=== PATIENT | male | born 1965 | race Two or more races ===

== ENCOUNTER 2018-11-05 08:38 | Outpatient (CLI) | payer OTHER | END 2018-11-05 08:52 | disposition home or self-care (01) | LOC: TOM 08:38 | DX: Z12.11 Encounter for screening for malignant neoplasm of colon (principal) ==

== ENCOUNTER 2019-04-20 18:02 | Inpatient (IN) | payer OTHER ==
[~2019-04-20] VITALS: Ht 175.3 cm; Wt 99.8 kg
[2019-04-20] MEDS ORDERED: MULTI VITAMIN1 EACH (18:13)
[2019-04-28] MEDS ORDERED: OMEPRAZOLE20 MG PO (16:31)
[2019-04-28] MEDS ORDERED: BALANCE B-1001 EACH PO (16:31)
[2019-04-28] MEDS ORDERED: RANITIDINE HCL300 M1 PO (16:31)
[2019-04-28] MEDS ORDERED: CIPRO500 MG PO (16:31)
[2019-04-28] MEDS ORDERED: FLAGYL500MG PO (16:31)
[2019-04-28] MEDS ORDERED: VITAMIN B-1100 M1 PO (16:31)
== END 2019-04-28 17:15 | disposition home or self-care (01) | DRG 392 ==
LOC: ER 18:02 → MEDJ 23:35
PROVIDERS: ADMIT Internal Medicine Cardiovascular Disease
PROC: BW21ZZZ Computerized Tomography (CT Scan) of Abdomen and Pelvis (ICD-10-PCS; principal; 2019-04-20)
PROC: 02HV33Z Insertion of Infusion Device into Superior Vena Cava, Percutaneous Approach (ICD-10-PCS; 2019-04-22)
PROC: BW21Y0Z Computerized Tomography (CT Scan) of Abdomen and Pelvis using Other Contrast, Unenhanced and Enhanced (ICD-10-PCS; 2019-04-27)
DX: K57.30 Diverticulosis of large intestine without perforation or abscess without bleeding (principal); E80.6 Other disorders of bilirubin metabolism; K43.9 Ventral hernia without obstruction or gangrene; D72.828 Other elevated white blood cell count; K63.89 Other specified diseases of intestine; Q63.2 Ectopic kidney; I87.2 Venous insufficiency (chronic) (peripheral); R19.03 Right lower quadrant abdominal swelling, mass and lump

== ENCOUNTER 2025-01-29 10:02 | Outpatient (CLI) | payer OTHER ==
[~2025-01-29 10:02] MED LIST: BALANCE B-1001 EACH PO; CIPRO500 MG PO; FLAGYL500MG PO; MULTI VITAMIN1 EACH; OMEPRAZOLE20 MG PO; RANITIDINE HCL300 M1 PO; VITAMIN B-1100 M1 PO
== END 2025-01-29 10:04 | disposition home or self-care (01) ==
LOC: SONOGRAMA 10:02
PROVIDERS: ATTEND Internal Medicine Cardiovascular Disease
DX: I10 Essential (primary) hypertension (principal)